=== PATIENT | female | born 1950 | race Caucasian/White ===

== ENCOUNTER → 2016-03-18 | Outpatient (CLI) | payer OTHER ==
[~2016-03-18] MED LIST: BUPIVACAINE 0.25% 30 ML SDV ONE; LIDOCAINE 1% 30 ML SDV ONE; NA BICARBONATE 50 MEQ/50 ML VIAL ONE
--- NOTE | 2016-03-18 11:53 | US ---
Ultrasound-guided PRP Injection of the Right Gluteal and Hamstring Tendons HISTORY: Prior MRI of the pelvis performed January 04, 2016 is reviewed, demonstrating gluteal tendin opathy over the right greater trochanter and proximal right hamstring tendinosis. Patient requests [place] P injection of both tendons. TECHNIQUE: Informed consent was obtained. A timeout was performed. 4 mL of PRP was manufactured in st andard fashion. Initially, the right gluteal tendons are addressed. Using standard sterile technique, lidocaine local anesthetic, and direct sonographic guidance, I advanced a 25-gauge needle into the gluteal tendons o nell the right greater trochanter. Additional 3 mL of 0.25% Marcaine and 2 mL PRP was injected at this location. Subsequently, the right hamstring tendon was addressed. Again, using standard sterile technique, lido edson local anesthetic, and direct sonographic guidance, I advanced a 22-gauge spinal needle into the right hamstring tendons at the ischial tuberosity. At this location, an additional 3 mL of 0.25% Mar edson and 2 mL PRP was injected, without complication. IMPRESSION: Successful ultrasound-guided injection of the right gluteal and hamstring tendons with pl atelet rich plasma.
== END ==
LOC: FIMAGING 07:43
PROVIDERS: ATTEND Radiology Diagnostic Radiology
PROC: 3E023GC Introduction of Other Therapeutic Substance into Muscle, Percutaneous Approach (ICD-10-PCS; principal; 2016-03-18)
DX: M76.01 Gluteal tendinitis, right hip (principal)